=== PATIENT | female | born 1955 | race Caucasian/White ===

== ENCOUNTER → 2023-06-29 14:42 | Outpatient (BNVA) | payer OTHER, SELFPAY | PROVIDERS: Visit Provider Family Medicine | DX: I10 Essential (primary) hypertension (principal); E11.9 Type 2 diabetes mellitus without complications | CPT/HCPCS: 80053; 80061; 82962; 83036 ==

== ENCOUNTER 2023-09-10 06:00 | Outpatient (CLI) | payer MEDICARE, SELFPAY | END 2023-09-10 06:01 | disposition home or self-care (01) | LOC: RAD 11-03 10:28 | PROVIDERS: PCP Family Medicine; Visit Provider Emergency Medicine | DX: R10.9 Unspecified abdominal pain (principal) | CPT/HCPCS: 80053; 83690; 85025 ==

== ENCOUNTER → 2025-02-02 09:41 | Outpatient (BNVA) | payer MEDICARE, SELFPAY | PROVIDERS: PCP Family Medicine; Visit Provider Family Medicine | DX: I10 Essential (primary) hypertension (principal); E11.9 Type 2 diabetes mellitus without complications | CPT/HCPCS: 80053; 80061; 83036 ==